=== PATIENT | male | born 1980 | race Caucasian/White ===

== ENCOUNTER → 2017-02-22 | Outpatient (CLI) | payer OTHER | LOC: BMCIMAGING 17:21 | PROVIDERS: ATTEND Family Medicine | DX: S92.421A Displaced fracture of distal phalanx of right great toe, initial encounter for closed fracture (principal) ==

== ENCOUNTER → 2017-03-25 | Outpatient (CLI) | payer OTHER | LOC: BMCIMAGING 13:59 | PROVIDERS: ATTEND Podiatrist Foot & Ankle Surgery | DX: S92.421D Displaced fracture of distal phalanx of right great toe, subsequent encounter for fracture with routine healing (principal); M76.61 Achilles tendinitis, right leg ==